=== PATIENT | male | born 1990 | race Caucasian/White ===

== ENCOUNTER 2017-08-26 20:28 | Emergency (ER) | payer OTHER ==
[~2017-08-26] VITALS: Ht 167.6 cm; Wt 77.1 kg
[2017-08-26 21:06] LABS: BASOPHIL % 0.7 % (0-2); PLATELET COUNT 234 x10^3mcL (130-400); RED CELL DISTRIBUTION WIDTH 14.3 % (11.5-14.5)
[2017-08-26 21:14] LABS: CALCIUM 9.5 mg/dL (8.5-10.1); CHLORIDE SERUM 101 mmol/L (98-107); CREATININE SERUM 1.3 mg/dL (0.7-1.3); GFR1 > 60 mL/min; GLUCOSE SERUM 93 mg/dL (74-106); POTASSIUM SERUM 3.6 mmol/L (3.5-5.1); SODIUM SERUM 140 mmol/L (136-145)
[2017-08-26 21:22] LABS: ALBUMIN 4.6 g/dL (3.4-5.0); ALKALINE PHOSPHATASE 90 U/L (46-116); ALT/SGPT 36 U/L (16-63); AST/SGOT 24 U/L (15-37); BILIRUBIN TOTAL 0.74 mg/dL (0.20-1.00); MAGNESIUM 2.7 mg/dL (1.8-2.4); TOTAL PROTEIN, SERUM 8.8 g/dL (6.4-8.2)
[2017-08-26 22:51] VITALS: BP 124/79
[2017-08-27] MEDS ORDERED: TEGRETOL200 MG PO (06:48)
== END 2017-08-26 22:51 | disposition home or self-care (01) ==
LOC: ED 20:28
PROVIDERS: Emergency Medicine
DX: R56.9 Unspecified convulsions (principal)
CPT/HCPCS: 36415

== ENCOUNTER 2017-08-27 00:10 | Inpatient (IN) | payer OTHER ==
[~2017-08-27] VITALS: Ht 167.6 cm; Wt 74.9 kg
[2017-08-27 01:05] LABS: BASOPHIL % 0.5 % (0-2); PLATELET COUNT 217 x10^3mcL (130-400); RED CELL DISTRIBUTION WIDTH 14.3 % (11.5-14.5)
[2017-08-27 01:29] LABS: CALCIUM 9.2 mg/dL (8.5-10.1); CHLORIDE SERUM 102 mmol/L (98-107); CREATININE SERUM 1.2 mg/dL (0.7-1.3); GFR1 > 60 mL/min; GLUCOSE SERUM 162 mg/dL (74-106); SODIUM SERUM 137 mmol/L (136-145)
[2017-08-27 01:33] LABS: ALBUMIN 4.3 g/dL (3.4-5.0); ALKALINE PHOSPHATASE 86 U/L (46-116); ALT/SGPT 28 U/L (16-63); AST/SGOT 25 U/L (15-37); BILIRUBIN TOTAL 0.71 mg/dL (0.20-1.00)
[2017-08-27 01:34] LABS: TOTAL PROTEIN, SERUM 8.3 g/dL (6.4-8.2)
[2017-08-27] MEDS ORDERED: TEGRETOL200 MG PO (06:48)
[2017-08-27 07:04] LABS: CHOLESTEROL/HDL RATIO 3.5; MAGNESIUM 2.6 mg/dL (1.8-2.4); PHOSPHOROUS 3.1 mg/dL (2.5-4.9)
[2017-08-27 07:08] LABS: T3 TOTAL 1.23 ng/mL
[2017-08-27 07:12] LABS: FREE T4 1.35 ng/dL (0.76-1.46); T4(THYROXINE) 11.2 ug/dL (4.7-13.3)
[2017-08-27 07:48] VITALS: BP 114/64
[2017-08-27 10:35] VITALS: BP 117/49
[2017-08-27 13:40] VITALS: BP 120/57
[2017-08-27 17:03] VITALS: BP 123/71
[2017-08-27 17:37] LABS: UA SPECIFIC GRAVITY 1.025 (1.005-1.035); microscopic required? YES; urine erythrocyte TRACE (NEGATIVE)
[2017-08-27 17:47] LABS: AMPHETAMINE QUAL UR POSITIVE (NEG <=1000)
[2017-08-28 00:02] VITALS: BP 116/56
[2017-08-28 06:14] LABS: BASOPHIL % 0.6 % (0-2); PLATELET COUNT 160 x10^3mcL (130-400)
[2017-08-28 06:32] LABS: CALCIUM 8.4 mg/dL (8.5-10.1); CARBON DIOXIDE 27.6 mmol/L (21-32); CHLORIDE SERUM 106 mmol/L (98-107); CREATININE SERUM 0.8 mg/dL (0.7-1.3); GFR1 > 60 mL/min; GLUCOSE SERUM 97 mg/dL (74-106); MAGNESIUM 2.1 mg/dL (1.8-2.4); POTASSIUM SERUM 3.7 mmol/L (3.5-5.1); SODIUM SERUM 140 mmol/L (136-145)
[2017-08-28 09:20] VITALS: BP 109/51
[2017-08-28 13:28] VITALS: BP 132/63
[2017-08-28 17:08] VITALS: BP 121/48
[2017-08-28 21:44] VITALS: BP 130/67
[2017-08-29 07:37] VITALS: BP 123/53
[2017-08-29 11:36] VITALS: BP 123/53
[2017-08-29] MEDS ORDERED: TEGRETOL200 MG PO (11:55)
== END 2017-08-29 12:20 | disposition home or self-care (01) | DRG 48 ==
LOC: ED 00:10 → DU 05:33
PROVIDERS: Emergency Medicine; ADMIT Family Medicine
DX: G90.9 Disorder of the autonomic nervous system, unspecified (principal); G93.40 Encephalopathy, unspecified; E83.41 Hypermagnesemia; S09.90XA Unspecified injury of head, initial encounter; D72.829 Elevated white blood cell count, unspecified; E78.5 Hyperlipidemia, unspecified; R55 Syncope and collapse; W19.XXXA Unspecified fall, initial encounter; Y93.89 Activity, other specified; Y92.89 Other specified places as the place of occurrence of the external cause
CPT/HCPCS: 83880; 84439; G0480; J1630; J7030; Q0092